=== PATIENT | male | born 1950 | race Caucasian/White ===

== ENCOUNTER 2017-03-12 15:59 | Observation (INO) ==
--- NOTE | 2017-03-12 16:54 | Emergency Department Note ---
Disposition Clinical Impression: Atypical chest pain, Hypercholesterolemia, Vomiting, History of hypercholesterolemia, History of esophageal reflux, Recent major surgery Disposition: Admitted As Inpatient Referrals: Sancho Kwon MD [Primary Care Provider] - Forms: ED Satisfaction Letter General Adult HPI - General Chief complaint: ED Chest Pain Stated complaint: chest pain to jaw Time Seen by Provider: 03/12/17 16:53 Source: patient Limitations: no limitations - History of Present Illness HPI Narrative: 66-year-old male reports emergency department complaining of burning in his abdomen and chest. He is status post recent thyroid lesion resection at the [facility]. The patient's pathology reports are not yet available. The patient has had no bloody stool. No emesis. There is no history of fever. No coughing or coughing up blood leg swelling or pain no syncope. There is no history of arm pain acutely, the patient is status post rotator cuff surgery on the left some weeks ago. History of coldness blueness numbness or weakness of the arms or legs. The patient has no personal history of DVT PE cancer or CAD. There is no history of trauma or rash. No urinary symptoms. No trouble walking talking hearing seeing or speaking. The patient denies any significant anxiety symptoms. He has a history of reflux per reports he reports this does not feel like reflux to him. He discomfort started yesterday. The patient is hypercholesterolemic but has no personal history of diabetes he is a nonsmoker no hypertension reported. He had a remote stress test which was negative. The patient is not known to be anticoagulated. Pain Scale: 6 - Related Data Home Medications Medication Instructions Recorded Confirmed Omeprazole [PriLOSEC] 20 mg PO DAILY 12/08/16 03/12/17 Cholecalciferol (Vitamin D3) 4,000 unit PO DAILY 03/12/17 03/12/17 [Vitamin D3] Levothyroxine [Synthroid] 50 mcg PO 0603/12/17 03/12/17 Loratadine [Claritin] 10 mg PO DAILY 03/12/17 03/12/17 Allergies Allergy/AdvReac Type Severity Reaction Status Date / Time No Known Allergies Allergy Verified 12/08/16 09:55 All systems ED: reviewed and negative except as stated. Past Medical History - Past Medical History Medical history: Reports: hyperlipidemia Psychiatric history: Reports: no psych history - Social History Smoking Status: Never smoker Smokeless Tobacco Status: No Alcohol use: Reports: occasionally Drug use: Reports: none Physical Exam - General Limitations: no limitations General appearance: alert, in no apparent distress - Head Head exam: atraumatic, normocephalic, normal inspection - Eye Eye exam: Present: normal appearance, PERRL, EOMI - ENT ENT exam: normal exam, normal oropharynx, mucous membranes moist, TM's normal bilaterally, normal external ear exam - Neck Neck exam: Present: normal inspection, full ROM, trachea midline, other ( Thyroid wound clean dry intact without dehiscence oozing weeping or significant redness.). Absent: meningismus - Chest Chest inspection: Present: symmetric chest wall rise. Absent: tenderness - Respiratory Respiratory exam: Present: normal lung sounds bilaterally. Absent: respiratory distress, wheezes, stridor, accessory muscle use, prolonged expiratory phase - Abdominal Exam Abdominal exam: Present: soft, Non-Tender, normal bowel sounds. Absent: tenderness, distention, guarding, rebound, rigidity, pulsatile mass - Extremities Exam Extremities exam: Present: normal inspection, full ROM, normal capillary refill. Absent: tenderness, pedal edema, joint swelling, calf tenderness - Expanded Lower Extremity Exam Neurovascular/Tendon exam: Present: normal capillary refill, pallor. Absent: motor deficit, sensory deficit, tendon deficit, extremity cold to touch - Back Exam Back exam: Present: normal inspection, full ROM. Absent: tenderness, CVA tenderness (R), CVA tenderness (L), vertebral tenderness - Neurological Exam Neurological exam: Present: alert, oriented X3, CN II-XII intact. Absent: motor sensory deficit - Psychiatric Psychiatric exam: Present: normal affect, normal mood - Skin Skin exam: Present: warm, dry, intact, normal color. Absent: rash, cyanosis, diaphoresis, erythema, pallor, mottled Course Vital Signs Temperature 97.5 F L 03/12/17 16:04 Pulse Rate 57 03/12/17 16:04 Respiratory Rate 16 03/12/17 16:04 Blood Pressure 158/79 03/12/17 16:04 O2 Sat by Pulse Oximetry 94 03/12/17 16:04 Temperature 97.5 F L 03/12/17 16:04 Pulse Rate 76 03/12/17 19:19 Respiratory Rate 16 03/12/17 18:30 Blood Pressure 125/70 03/12/17 19:19 O2 Sat by Pulse Oximetry 97 03/12/17 19:19 Oxygen Delivery Oxygen Delivery Room Air Medical Decision Making - MDM Narrative Medical decision making narrative: The patient recent left shoulder surgery as well as recent thyroid surgery. He is complaining of midepigastric and burning chest discomfort. He has a history of reflux and reports that his discomfort does not feel like reflux. We attempted to give him a GI cocktail but he vomited all in the ED. The patient has not had any recent cardiac testing. He is a male, over 48, has a history of hypercholesterolemia, and is experiencing chest discomfort which is somewhat atypical. The patient may be experiencing gastritis or biliary colic. However , based on his heart score of 4 and unusual symptomatology for the patient, I thought it would be appropriate to observe the patient in the hospital. The family is very uncomfortable with the patient going home. They report he does not usually have any chest or abdominal symptomatology. His CT scan showed no acute disease. He was given Pepcid and aspirin ED as well as morphine and Zofran. The patient is currently stable. I discussed the case with the hospitalist on-call who has accepted the patient to their care. - Lab Data Lab results reviewed: Yes I reviewed the patient's lab results. Result diagrams: 03/12/17 17:01 03/12/17 17:01 Lab Results 03/12/17 03/12/17 03/12/17 Range/Units 17:01 17:01 17:01 WBC 5.4 (4.3-11.1) K/mcL RBC 4.22 (4.19-5.50) M/mcL Hgb 13.1 (12.9-16.9) g/dL Hct 39.1 (37.5-50.1) % MCV 92.7 (83.0-100.0) fL MCH 31.0 (28.0-33.3) pg MCHC 33.5 (31.6-35.5) g/dL RDW 13.0 (11.5-14.5) % Plt Count 197 (140-400) K/mcL MPV 9.7 (9.4-12.4) fL Immature Gran % 0.2 (0-4) % Seg Neutrophils % 60.6 % Lymphocytes % 30.8 % Monocytes % 7.6 % Eosinophils % 0.6 % Basophils % 0.2 % Neutrophils # 3.3 (1.6-8.9) K/mcL Lymphocytes # 1.7 (0.6-4.6) K/mcL Monocytes # 0.4 (0.0-1.3) K/mcL Eosinophils # 0.0 (0.0-0.6) K/mcL Basophils # 0.0 (0.0-0.2) K/mcL PT 11.2 (9.4-12.1) Seconds INR 1.0 APTT 30.7 (26.0-36.0) Seconds Sodium (136-145) mEq/L Potassium (3.5-4.5) mEq/L Chloride (98-109) mEq/L Carbon Dioxide (19-29) mEq/L BUN (8-26) mg/dL Creatinine (0.72-1.25) mg/dL Est GFR ( Amer) (> 60) Est GFR (Non-Af Amer) (> 60) BUN/Creatinine Ratio (6-26) Glucose (70-99) mg/dL Calculated Osmolality (280-300) Lactic Acid (0.5-2.2) mmol/L Calcium (8.6-10.8) mg/dL Total Bilirubin (0.2-1.2) mg/dL Direct Bilirubin (0.0-0.5) mg/dL Indirect Bilirubin (0.0-1.2) mg/dL AST (5-34) Units/L ALT (0-55) Units/L Alkaline Phosphatase (38-126) Units/L Troponin I 0.00 (0-0.03) ng/mL C-Reactive Protein (Less than 5) mg/L Serum Total Protein (6.0-8.3) g/dL Albumin (3.5-5.0) g/dL Globulin (2.4-3.5) g/dL Albumin/Globulin Ratio (1.1-2.2) Lipase (8-78) Units/L TSH (0.350-4.840) mcIU/mL 03/12/17 03/12/17 Range/Units 17:01 17:01 WBC (4.3-11.1) K/mcL RBC (4.19-5.50) M/mcL Hgb (12.9-16.9) g/dL Hct (37.5-50.1) % MCV (83.0-100.0) fL MCH (28.0-33.3) pg MCHC (31.6-35.5) g/dL RDW (11.5-14.5) % Plt Count (140-400) K/mcL MPV (9.4-12.4) fL Immature Gran % (0-4) % Seg Neutrophils % % Lymphocytes % % Monocytes % % Eosinophils % % Basophils % % Neutrophils # (1.6-8.9) K/mcL Lymphocytes # (0.6-4.6) K/mcL Monocytes # (0.0-1.3) K/mcL Eosinophils # (0.0-0.6) K/mcL Basophils # (0.0-0.2) K/mcL PT (9.4-12.1) Seconds INR APTT (26.0-36.0) Seconds Sodium 142 (136-145) mEq/L Potassium 3.8 (3.5-4.5) mEq/L Chloride 105 (98-109) mEq/L Carbon Dioxide 28 (19-29) mEq/L BUN 18 (8-26) mg/dL Creatinine 0.90 (0.72-1.25) mg/dL Est GFR ( Amer) > 60 (> 60) Est GFR (Non-Af Amer) > 60 (> 60) BUN/Creatinine Ratio 20 (6-26) Glucose 101 H (70-99) mg/dL Calculated Osmolality 296 (280-300) Lactic Acid 0.8 (0.5-2.2) mmol/L Calcium 9.6 (8.6-10.8) mg/dL Total Bilirubin 0.9 (0.2-1.2) mg/dL Direct Bilirubin 0.5 (0.0-0.5) mg/dL Indirect Bilirubin 0.4 (0.0-1.2) mg/dL AST 103 H (5-34) Units/L ALT 55 (0-55) Units/L Alkaline Phosphatase 113 (38-126) Units/L Troponin I (0-0.03) ng/mL C-Reactive Protein 9 H (Less than 5) mg/L Serum Total Protein 7.1 (6.0-8.3) g/dL Albumin 4.0 (3.5-5.0) g/dL Globulin 3.1 (2.4-3.5) g/dL Albumin/Globulin Ratio 1.3 (1.1-2.2) Lipase 46 (8-78) Units/L TSH 5.002 H (0.350-4.840) mcIU/mL - Radiology Data Radiology results reviewed: Yes I reviewed the patient's radiology results.
[2017-03-12 17:14] LABS: Basophils % 0.2 %; Eosinophils % 0.6 %; Hematocrit 39.1 % (37.5-50.1); Hemoglobin 13.1 g/dL (12.9-16.9); Immature Granulocytes % 0.2 % (0-4); Lymphocytes # 1.7 K/mcL (0.6-4.6); Lymphocytes % 30.8 %; Mean Corpuscular HGB Conc 33.5 g/dL (31.6-35.5); Mean Corpuscular Volume 92.7 fL (83.0-100.0); Mean Platelet Volume 9.7 fL (9.4-12.4); Monocytes # 0.4 K/mcL (0.0-1.3); Monocytes % 7.6 %; Neutrophils # 3.3 K/mcL (1.6-8.9); Platelet Count 197 K/mcL (140-400); Red Blood Count 4.22 M/mcL (4.19-5.50); Segmented Neutrophils % 60.6 %
[2017-03-12] MEDS ORDERED: *HR* Morphine 2 MG/ML SYRINGE IVP ONE (17:18)
[2017-03-12] MEDS ORDERED: Ondansetron 4 MG/2 ML VIAL IVP ONE (17:18)
[2017-03-12] MEDS ORDERED: GI Cocktail 40 ML EACH PO ONE (17:18)
[2017-03-12 17:28] LABS: Prothrombin Time 11.2 Seconds (9.4-12.1)
[2017-03-12 17:30] LABS: Activated Partial Thrombo Time 30.7 Seconds (26.0-36.0)
[2017-03-12 17:34] LABS: Alanine Aminotransferase 55 Units/L (0-55); Albumin/Globulin Ratio 1.3 (1.1-2.2); Alkaline Phosphatase 113 Units/L (38-126); Aspartate Amino Transferase 103 Units/L (5-34); BUN/Creatinine Ratio 20 (6-26); Bilirubin,Direct 0.5 mg/dL (0.0-0.5); Bilirubin,Indirect 0.4 mg/dL (0.0-1.2); Bilirubin,Total 0.9 mg/dL (0.2-1.2); Blood Urea Nitrogen 18 mg/dL (8-26); C-Reactive Protein 9 mg/L (Less than 5); Calcium 9.6 mg/dL (8.6-10.8); Carbon Dioxide 28 mEq/L (19-29); Chloride 105 mEq/L (98-109); Globulin 3.1 g/dL (2.4-3.5); Glucose 101 mg/dL (70-99); Lipase 46 Units/L (8-78); Osmolality,Calculated 296 (280-300); Potassium 3.8 mEq/L (3.5-4.5); Sodium 142 mEq/L (136-145); Total Protein 7.1 g/dL (6.0-8.3); eGFR For African Americans > 60 (> 60); eGFR For Non-African Americans > 60 (> 60)
[2017-03-12] MEDS ORDERED: Aspirin 325 MG TABLET PO ONE (17:53)
[2017-03-12] MEDS ORDERED: Famotidine 20 MG/2 ML VIAL IVP ONE (17:53)
[2017-03-12 18:37] LABS: Thyroid Stimulating Hormone 5.002 mcIU/mL (0.350-4.840)
[2017-03-12] MEDS ORDERED: Naloxone 0.4 MG/ML INJ IVP PRN (21:33)
[2017-03-12] MEDS ORDERED: Ondansetron 4 MG/2 ML VIAL IVP PRN (21:33)
[2017-03-12] MEDS ORDERED: Acetaminophen 325 MG TABLET PO PRN (21:33)
--- NOTE | 2017-03-12 23:17 | Internal Med History&Physical ---
Date of Encounter: 03/12/17 Time of Encounter: 23:15 Assessment and Plan (1) Atypical chest pain Current visit: Yes Status: Acute Patient presents with burning pain and lower chest and abdomen. History of recent right hemithyroidectomy. History of Aleve use 3 times per week. No reproducible chest wall tenderness. Benign physical exam. EKG reveals nonspecific ST-T wave changes with left axis deviation. Patient will be placed observation status under telemetry. Cycle cardiac enzymes. Treadmill pharmacological stress test in the morning. (2) GERD (gastroesophageal reflux disease) Current visit: Yes Status: Chronic Resume proton moment with us. Add sucralfate and assess response. Qualifiers: Esophagitis presence: esophagitis presence not specified Qualified Code(s) : K21.9 - Gastro-esophageal reflux disease without esophagitis Internal Medicine - H&P: HPI Chief complaint: Burning chest pain Admitted From: Emergency Dept Plans for Post Hospital Care: Home History of present illness: Mr. Lee is a 66 year old male who presented to the emergency department due to pain in his abdomen and chest. Patient states that he underwent right hemithyroidectomy at [facility] on Sunday. Yesterday night he woke up around 2 AM with a burning sensation in his lower chest and upper abdomen that lasted about 20 minutes. This resolved by itself and he was able to sleep. However, today afternoon, at 1 PM he started experiencing burning in his chest in the middle of his chest that was associated with sweating and nausea. The pain became worse and reached 9/10 in intensity and hence, he presented to the emergency department. In the ER, he received relief only after he received the morphine. He was given GI cocktail but the patient states that he threw it up. He denies any fever or chills, diarrhea consultation. He denies any palpitations, feeling lightheaded, short of breath , cough or wheezing. He reports a history of acid reflux and takes omeprazole for the same. He states that he uses Aleve at bedtime 3-4 times a week due to pain in his left shoulder. He reports a history of tingling in his arms on Sunday. He called the nurse at [facility] and was instructed to take 4 Tums. The tingling resolved after he took the Tums. He denies any swelling in his legs, changes in his appetite or weight. Past Med Surg Social Fam HX - Past Medical History Attestation: Yes The following information was validated with the patient. Source: patient Medical history: GERD, hyperlipidemia Psychiatric history: no psych history - Past Surgical History Surgical History: orthopedic, other (Left shoulder surgery), thyroidectomy ( Right hemithyroidectomy) - Social History Smoking Status: Never smoker Smokeless Tobacco Status: No Alcohol use: occasionally Drug use: none Current living situation: Home, With Family Activity Level: Independent ambulation, Very active Recent Out of Country Travel Within the Last 8 Weeks: No Exposure or Possible Exposure to Illness During Travel: No - Family History Father Hx Family Cardiac Disorders: Yes (Irregular heart rate that required a pacemaker placement) Internal Medicine - H&P: Meds Omeprazole [PriLOSEC] 20 mg PO DAILY 12/08/16 [History] Cholecalciferol (Vitamin D3) [Vitamin D3] 4,000 unit PO DAILY 03/12/17 [History] Levothyroxine [[place]th[place]] [place] [address]/12/17 [History] Loratadine [Claritin] 10 mg PO DAILY 03/12/17 [History] Allergies No Known Allergies Allergy (Verified 12/08/16 09:55) All Systems PM: A 10-system review of systems was performed and is negative for pertinent findings except as documented above in the HPI. Review of systems: 10 systems have been reviewed and are negative except as mentioned in the history of present illness - Constitutional Vitals: Temp Pulse Resp BP Pulse Ox 98.1 F 65 16 130/70 95 03/12/17 23:14 03/12/17 23:14 03/12/17 23:14 03/12/17 23:14 03/12/17 23:14 Exam: Gen.: Lying in bed. No acute distress. Eyes: Pupils equal, round and reactive to light. Extraocular muscles intact. ENT: Moist mucous membranes. No oropharyngeal erythema or discharge. Chest: Clear to auscultation bilaterally. No adventitious sounds present. CVS: First and second heart sounds present. No murmurs, rubs or gallops. No reproducible chest wall tenderness. Abdomen: Soft, tenderness to palpation in the epigastric region without any rebound tenderness, guarding, rigidity; nondistended. Bowel sounds present. No hepatosplenomegaly. Skin: No decubitus ulcers appreciated. Healing incision over the right half of the neck. PRACTICE MANAGEMENT CONSULTANT: No focal neuro deficits present. Psychiatric: Alert, awake and oriented to time, place and person. Lymphatic system: No lymphadenopathy appreciated Internal Med - H&P Results - Labs CBC & Chem 7: 03/12/17 17:01 03/12/17 17:01 Labs: Cardiac Enzymes 03/12/17 Range/Units 21:46 Troponin I 0.01 (0-0.03) ng/mL - EKG Data -: EKG Interpreted by Myself EKG shows normal: sinus rhythm, axis (Left axis deviation), ST-T waves ( Nonspecific ST-T changes) Rate: normal - Diagnostic Studies Chest x-ray Status: image reviewed by me (No acute abnormality or infiltrates)
[2017-03-12] MEDS: Sucralfate 1 GM TABLET PO SCH (23:31)
[2017-03-13] MEDS ORDERED: *HR* Morphine 2 MG/ML SYRINGE IVP PRN (04:13)
[2017-03-13] MEDS: Sucralfate 1 GM TABLET PO SCH (06:38)
[2017-03-13] MEDS ORDERED: Regadenoson 0.4 MG/5 ML SYRINGE IVP ONE (07:40)
[2017-03-13] MEDS ORDERED: Loratadine 10 MG TABLET PO SCH (09:00)
[2017-03-13 09:31] LABS: Triiodothyronine (T3) Free 2.7 pg/mL (1.71-3.71)
--- NOTE | 2017-03-13 11:14 | Electrocardiograph Report ---
[place] [id number] Test Date: 2017-03-12 Pat Name: Bay Lee Department: 103 Room: 3B Gender: M Lawn Mower Repairer: SAMY : 1950 Requested By: Dale Duffy Order Number: [id number] Reading MD: Brooklynn Florian Measurements Intervals [place] Rate: 63 P: 23 UT: 153 QRS: -34 QRSD: 98 T: -7 QT: 386 QTc: 392 Interpretive Statements SINUS RHYTHM MARKED LEFT AXIS DEVIATION MINIMAL VOLTAGE CRITERIA FOR LVH, CONSIDER NORMAL VARIANT Electronically Signed On 03-13-2017 11:13:20 EDT by Brooklynn Florian
--- NOTE | 2017-03-13 11:30 | Nuclear Medicine Stress Report ---
Regadenoson Nuclear Stress Name: Bay Lee Date of Study: 03/13/2017 Date: 1950 Ht: 68.0 in Medical Record#: [id number] Age: 66 Wt: 200.0 lb Gender: Male Order #: [id number] Location: [facility] Room: [facility] Supervising Provider: Hung Uribe CNP Reading Physician: Dave Mukherjee MD, [facility] Ordering Physician: Lynnette Christianson CNP Primary Care Physician: Sancho Kwon MD Stress Technologist: Jaspal Ash CRT Logistic Specialist: Xavier Rainey Indications: burning in chest Impression: Gated LVEF = 57%. Perfusion imaging was negative for ischemia or infarct. Stress Test Summary: Stress Test Type: Pharmacologic Regadenoson 0.4mg/5ml given IV Baseline Information: Initial Heart Rate: 59 Blood Pressure: 112/64 Stress Information: Test Terminated Due to (primary): As per protocol Maximum Blood Pressure: 120/68 Maximum Heart Rate: 75 Percent Maximum Heart Rate Achieved: 49 Double Product: 9000 Symptoms: Nausea Nuclear Summary: SPECT myocardial perfusion imaging using Tc99m Sestamibi given intravenously was performed at rest and following cardiac stress testing. The resting images were obtained following initial dose of 11 mCi. Following stress an additional dose of 34 mCi was given at peak exercise or 30 seconds post regadenoson infusion. Findings: Stress Note * Resting ECG demonstrated sinus bradycardia (59 bpm), borderline left axis deviation, poor r-wave progression. * No baseline arrhythmias were noted. * Patient had no chest pain during stress. * No arrhythmias were noted during stress. * No significant ECG changes with regadenoson. Hemodynamic responses * Normal hemodynamic responses to pharmacologic stress. Study Quality * Study quality is average. Gated EF % * Gated LVEF = 57%. Left Ventricle * The left ventricle is not dilated. * Normal Segmental Perfusion in rest. * Normal segmental perfusion in stress. TID * No evidence of transient ischemic dilatation. Updated by Dave Mukherjee MD, [facility] on 03/13/2017 11:21:43 AM electronically signed on 03/13/2017 11:22:14 AM with status of Final
[2017-03-13 11:54] VITALS: BP 122/73
--- NOTE | 2017-03-13 14:48 | Discharge Summary ---
Date of Encounter: 03/13/17 Time of Encounter: 13:30 - Discharge Diagnosis (1) Atypical chest pain Priority: Primary Status: Resolved Comments: patient denied chest pain at time of discharge. Patient did have a bout of chest burning overnight while admitted. Stress test negative. Troponins negative. Chest x-ray negative. Chest CTA negative. Abdominal CT negative. Thyroid studies normal. Symptoms consistent with uncontrolled reflux, follow- up outpatient. (2) Esophageal spasm Priority: Primary Status: Suspected (3) Anxiety about health Priority: Primary Status: Acute (4) H/O partial thyroidectomy Priority: Secondary Status: Chronic Comments: TSH borderline elevated however T3 and T4 both normal. Follow-up outpatient (5) GERD (gastroesophageal reflux disease) Priority: Secondary Status: Chronic Qualifiers: Esophagitis presence: esophagitis presence not specified Qualified Code(s) : K21.9 - Gastro-esophageal reflux disease without esophagitis - Discharge Medications Prescriptions: Mag Hydrox/Al Hydrox/Simeth [Maalox] 30 ml PO DAILY PRN #200 ml PRN Reason: Heartburn Sucralfate [Carafate] 1 gm PO 0730,1630 #60 tablet Home Medications: Omeprazole [PriLOSEC] 20 mg PO DAILY 12/08/16 [History] Cholecalciferol (Vitamin D3) [Vitamin D3] 4,000 unit PO DAILY 03/12/17 [History] Levothyroxine [Synthroid] 50 mcg PO 0630 03/12/17 [History] Loratadine [Claritin] 10 mg PO DAILY 03/12/17 [History] Mag Hydrox/Al Hydrox/Simeth [Maalox] 30 ml PO DAILY PRN #200 ml 03/13/17 [Rx] Sucralfate [Carafate] 1 gm PO 0730,1630 #60 tablet 03/13/17 [Rx] Allergies/Adverse Reactions: Allergies No Known Allergies Allergy (Verified 12/08/16 09:55) Procedures/tests Complete & Pending: Procedures Performed prior 72 hours Category Date Time Status NM jefry perf SPECT multi [NM] Routine Exams 03/12/17 23:14 Taken SP pharm nuclear stress Routine Y 03/12/17 23:13 Completed Date of admission: 03/12/17 21:14 Primary care physician: Sancho Kwon MD Discharging clinician: Cristal Lyon Anticipated date of discharge: 03/13/17 - Patient Status Disposition: Home, Self-Care Condition: Good Functional capacity at discharge: independent ambulation Overall status at discharge: patient is back to baseline - Discharge Instructions Follow Up With: Sancho Kwon MD [Primary Care Provider] - 03/22/17 2:00 pm Additional Instructions: Follow-up with primary care provider as scheduled - Diet and Activity Activity: increase activity as tolerated Diet: low fat, low cholesterol Hospital course: Mr. Lee is a 66 year old male with past medical history of right hemithyroidectomy [facility] on Sunday, GERD, hyperlipidemia. Patient presented to the emergency department chief complaint of abdominal and chest pain. Patient said he will come up on the morning prior to presentation in the middle of the night with a burning sensation in his lower chest and upper abdomen that lasted approximately 20 minutes. It resolved by itself and he was able to go back to sleep. On the day of presentation however in the afternoon, he started to experience burning in his chest located in the middle of his chest that was associated with sweating and nausea. Pain became worse prompting his presentation to the emergency department. In the emergency department, his relief occurred only after he had received morphine. He was given a GI cocktail but immediately vomited. He denied any fever, chills, diarrhea, constipation. He denied any palpitations, shortness of breath or wheezing. Patient stating he takes omeprazole daily for his reflux and states that he uses Aleve at bedtime 3-4 times a week secondary to shoulder pain. Patient stating he had a history of tingling in his arms on the day after his surgery and he called the nurse at [facility] and was instructed to take 4 Tums which resolved his tingling. Workup in the emergency department unremarkable. Chest x-ray negative. Chest CTA negative for acute processes. Patient was admitted to the hospitalist service for further evaluation and management. Abdominal pelvic CT negative for acute processes. Patient also had a nuclear stress test that was negative for ischemia or infarct and revealed an ejection fraction of 57%. Acute coronary syndrome ruled out. Acute pulmonic etiology ruled out. Acute abdominal etiology ruled out with negative CT and unremarkable LFTs. No leukocytosis, fever, or other signs of an infection was present during this admission. TSH borderline elevated however free T3 and T4 both normal. Patient was able to tolerate a regular diet while admitted. He is endorsing compliance with his omeprazole so he was started on twice a day dosing of Carafate for suspected possible uncontrolled reflux/possible early ulcer given his NSAID use. He and his were very upset and anxious on day of discharge. They elected that we "did nothing" to resolve his pain. Numerous tests and labs were discussed again with the family and possible/ probable diagnoses was again covered. Patient and family were requesting an EGD during this visit however this was not indicated during an inpatient stay given the brevity of his symptoms as well as the fact that he was able to tolerate a regular diet. He was instructed to follow up with his primary care provider with a possible referral to GI as indicated if the Carafate is ineffective. He was discharged home in stable condition with close outpatient follow-up recommended. ITS Impressions Chest X-Ray 03/12/17 16:11 IMPRESSION: No acute findings D/ / Genevieve Moreno MD / Genevieve Moreno MD Interpreting Provider: Genevieve Moreno MD Chest CTA 03/12/17 17:59 IMPRESSION: No evidence of pulmonary embolism or acute pulmonary abnormality. D/ / Xuan Villanueva MD / Xuan Villanueva MD Interpreting Provider: Xuan Villanueva MD Abdomen/Pelvis CT 03/12/17 18:00 IMPRESSION: No acute findings within the abdomen or pelvis to explain the patient's symptoms. No CT evidence of appendicitis. Mild prostatomegaly. Colonic diverticulosis with no acute features. D/ / 03/12/2017 20:00:59 Arthur Barajas MD / dick Interpreting Provider: Arthur Barajas MD Regadenosen nuclear stress test impression: Gated LVEF equals 57%. Perfusion imaging was negative for ischemia or infarct. - Time Spent with Patient Total time spent providing and/or coordinating discharge services: - Constitutional Vitals: Temp Pulse Resp BP Pulse Ox 98.0 F 61 14 122/73 95 03/13/17 11:45 03/13/17 11:45 03/13/17 11:45 03/13/17 11:45 03/13/17 11:45 General appearance: Present: A&O X 3, pleasant, no acute distress, answers questions appropriately - Head Head exam: Present: atraumatic, normocephalic - Eye Eye exam: Present: PERRL, conjuntiva pink, sclera anicteric Pupils: Present: PERRL - Neck Neck exam general surgery: Present: supple, trachea midline. Absent: lymphadenopathy - Respiratory Respiratory exam: Present: CTAB. Absent: accessory muscle use, rales, respiratory distress, rhonchi, wheezes - Cardiovascular Cardiovascular exam: Present: RRR, +S1, +S2. Absent: diastolic murmur, gallop, rubs, systolic murmur - GI/Abdominal GI/Abdominal exam: Present: normal bowel sounds, soft, no peritoneal signs. Absent: distended, tenderness - Extremities Exam Extremities exam: Present: warm, radial pulses palpable and symetrical. Absent : calf tenderness, cyanotic, pedal edema - Neurological Exam Neurological exam: Present: alert, CN II-XII intact, normal gait, oriented X3, no focal deficits, strengths equal and symetr throughout. Absent: pronater drift, facial droop, speech deficit - Psychiatric Psychiatric exam: Present: anxious - Expanded Psychiatric Exam Focused psych exam: Present: perseverating - Skin Skin exam: Present: dry, intact, normal color, warm
== END 2017-03-13 16:25 | disposition home or self-care (01) ==
LOC: EMEROO 15:59 → 3BNU 15:59 → SUATTDRO 21:14 → 3BNU 21:30
PROVIDERS: ADMIT Internal Medicine Sleep Medicine; ATTEND Nurse Practitioner Family